=== PATIENT | female | born 1965 | race Caucasian/White ===

== ENCOUNTER 2017-06-19 21:19 | Emergency (ER) | payer MEDICAID ==
[~2017-06-19] VITALS: Ht 160 cm; Wt 85.0 kg
[~2017-06-19 21:19] MED LIST: IBUP-1542 PO; PENI500T PO; PRED20TA PO
[2017-06-19 21:34] VITALS: Ht 160 cm; Wt 85.0 kg
--- NOTE | 2017-06-19 22:39 | ERD ---
ER Documentation Chief Complaint Chief Complaint sp ground level fall, right hand swelling HPI This left handed 52 year old female fell today when she was running to catch her ride, pt fell forward with the right arm stretched out, right hand pain edema and JARRELL, right FA pain denies hitting her head, loss of consciousness, nausea, vomiting, change in behavior ROS All systems reviewed and are negative except as per history of present illness. Medications Home Meds Active Scripts Hydrocodone/Acetaminophen ([place] 5-325 Tablet) 1 Each Tablet, 1 TAB PO Q6H Y for PAIN, #7 TAB Prov:ADRIEL,ELE 06/19/17 Ibuprofen* (Motrin*) 400 Mg Tab, 400 MG PO Q6, #30 TAB Prov:ADRIEL,ELE 06/19/17 Prednisone* (Prednisone*) 20 Mg Tab, 40 MG PO DAILY for 4 Days, TAB Prov:LIZ HASSAN 11/26/15 Penicillin V Potassium* (Penicillin V K*) 500 Mg Tab, 500 MG PO QID for 10 Days , TAB Prov:LIZ HASSAN 11/26/15 Ibuprofen* (Motrin*) 600 Mg Tab, 600 MG PO Q6H Y for PAIN AND OR ELEVATED TEMP, #30 TAB Prov:LIZ HASSAN 11/26/15 Allergies Allergies: Coded Allergies: No Known Allergy (Unverified , 06/19/17) PMhx/Soc Medical and Surgical Hx: pt denies Medical Hx History of Surgery: Yes (LEFT KNEE SX) Anesthesia Reaction: No Hx Neurological Disorder: No Hx Respiratory Disorders: No Hx Cardiac Disorders: No Hx Psychiatric Problems: No Hx Miscellaneous Medical Probl: No Hx Alcohol Use: No Hx Substance Use: No Hx Tobacco Use: No Smoking Status: Never smoker Physical Exam Vitals Vital Signs Date Time Temp Pulse Resp B/P Pulse Ox O2 Delivery O2 Flow Rate FiO2 06/19/17 21:34 98.3 83 20 133/73 98 Physical Exam Const: Nourished well-appearing well-hydrated 52-year-old female obvious discomfort no acute distress Head: Atraumatic no laceration, abrasion, or hematoma Eyes: Normal Conjunctiva PERRLA, EOMI ENT: Normal External Ears, Nose and Mouth. Neck: Full range of motion..~ Resp: Clear to auscultation bilaterally no wheezes or rhonchi Cardio: Regular rate and rhythm, no murmurs Abd: Back: Upper Extremity -right hand and forearm: Skin: No laceration, gross edema, ecchymosis, right hand, forearm presents with inferior tenderness, no bruising noted no gross deformity. No laceration or abrasion, no gross deformity Compartments: Soft Motor: Full active range of motion shoulder/elbow abnormal range of motion of wrist and hand with movement Sensation: Intact shoulder/pinky/middle finger/thumb web space Bones: Nontender humerus/elbow/forearm/wrist full tenderness thumb, pointer finger, and middle finger Snuffbox: Nontender Joints: No effusion Pulses/Perfusion: 2+ radial, Capillary refill < 2 seconds Neur: Awake and alert Psych: Normal Mood and Affect Results 24 hrs Current Medications Medications (Trade) Dose Ordered Sig/Apolinar Route PRN Reason Start Time Stop Time Status Last Admin Dose Admin Acetaminophen/ Hydrocodone Bitart ([place] (5/325)) 1 tab ONCE ONCE PO 06/19/17 23:00 06/19/17 23:01 DC 06/19/17 22:52 Procedures/MDM PROCEDURE: XR Forearm. CLINICAL INDICATION: Fall with pain in right forearm. TECHNIQUE: AP and lateral views of the right forearm were obtained. COMPARISON: No prior studies are available for comparison. FINDINGS: There is normal mineralization and alignment. No fracture or osseous lesion is identified. The soft tissues are unremarkable. IMPRESSION: Unremarkable right forearm. Electronically viewed and signed by Physician Aleah on 06/19/2017 23:28 PROCEDURE: XR Hand. CLINICAL INDICATION: Fall. Reference marker directed towards the proximal phalanx of the right index finger. TECHNIQUE: AP oblique and lateral views of the right hand were obtained. COMPARISON: No prior studies are available for comparison. FINDINGS: There is normal mineralization. No acute fracture or dislocation is seen. There are no significant degenerative changes. There is no significant soft tissue swelling. IMPRESSION: Normal x-ray of the right hand x-ray . Electronically viewed and signed by Physician Aleah on 06/19/2017 23:27 This 52-year-old female presents to emergency department for evaluation after mechanical trip and fall today in the street while running to a car. Patient fell with her right hand outstretched, two-room course includes history and physical exam, patient has pain with movement of her finger and middle finger, gross edema noted. Abnormal range of motion., Patient also reports inferior forearm tenderness. Patient has full range of motion of elbow with flexion and extension. Treated with [place] 5/325, x-ray of right is read by radiologist there is normal mineralization, no fracture or dislocation is seen. There is no significant degenerative changes. There is no significant soft tissue swelling. Normal x-ray of right hand. x-ray of right forearm radiology findings are unremarkable, there is normal mineralization and alignment. No fracture or osseous lesion is identified. The soft tissues are unremarkable. Plan to discharge patient home with a wrist immobilizer, pain medication, ibuprofen, [place]/325 count of 7 for severe pain. Follow-up with primary care physician for reevaluation in 48 hours if necessary, return to emergency department for worsening of symptoms, swelling, pain, loss of function. Patient is stable with no new complaints during ER course, clinically there is no current evidence to suggest scaphoid fracture, flexor muscle injury, tendon injury, neurovascular compromise or any other emergent condition appearing to require further evaluation or hospitalization. I feel the patient is stable for discharge at this time. I have discussed results, examination findings, the treatment plan with the patient and family present prior to discharge. Indications for emergent reevaluation, side effects of medication were also discussed. All questions were answered. Patient verbalizes understanding and agrees with plan of care. Splint Assessment: Neurovascularly intact post splint placement with good fit. Departure Diagnosis: Primary Impression: Hand contusion Encounter type: initial encounter Laterality: right Qualified Code: S60.221A - Contusion of right hand, initial encounter Additional Impression: Arm contusion Encounter type: initial encounter Laterality: right Qualified Code: S40.021A - Contusion of right upper extremity, initial encounter Condition: Good Patient Instructions: Contusion, Hand, Contusion, Soft Tissue Additional Instructions: Thank you for for coming to [facility] for your care today. Please ask your nurse or provider if you have questions about your care today and do not leave until all your questions have been answered. Please use any medications given as directed and follow-up with your doctor (or the doctor you were referred to) in the next 2-3 days. If you do not have a primary care doctor you may follow up at the [facility] (listed below). You may also use motrin and tylenol as needed for fever and/or pain unless instructed otherwise by your provider or nurse. Indications for more urgent follow-up have been discussed, but you may return to the Emergency Department at ANY time for any worrisome or worsening symptoms. If you have abdominal pain, please know that no test or exam you received is perfect and you should follow up within 8 hours for continued pain. If you had any imaging studies today, such as an X-Ray or CT Scan, these studies will be reviewed later by a radiologist. You will be called if there are important findings that were not identified today, so make sure the contact information you provided at registration is correct. If you received any narcotic pain control medicine today, such as Vicodin, Morphine or Dilaudid, your coordination and judgment may be affected for a number of hours. Please do not drive or operate heavy machinery, and you may want someone to assist you at home. If you were given a prescription for narcotic medication, be aware that it is very addictive- use sparingly and only if necessary. ELE MOREL Jun 19, 2017 22:39
[2017-06-19] MEDS ORDERED: HYDROCODONE/APAP (5/325) TAB PO ONE (23:00)
--- NOTE | 2017-06-19 23:28 | RADRPT ---
PROCEDURE: XR Hand. CLINICAL INDICATION: Fall. Reference marker directed towards the proximal phalanx of the right inde x finger. TECHNIQUE: AP oblique and lateral views of the right hand were obtained. COMPARISON: No prior studies are available for comparison. FINDINGS: There is normal mineralization. No acute fracture or dislocation is seen. There are no significant degenerative changes. There is no significant soft tissue swelling. IMPRESSION: Normal x-ray of the right hand x-ray . RPTAT: [facility] Physician Aleah Date Time Electronically viewed and signed by Physician Aleah on 06/19/2017 23:27 RS/
--- NOTE | 2017-06-19 23:29 | RADRPT ---
PROCEDURE: XR Forearm. CLINICAL INDICATION: Fall with pain in right forearm. TECHNIQUE: AP and lateral views of the right forearm were obtained. COMPARISON: No prior studies are available for comparison. FINDINGS: There is normal mineralization and alignment. No fracture or osseous lesion is identified. The soft tissues are unremarkable. IMPRESSION: Unremarkable right forearm. RPTAT: [facility] Physician Aleah Date Time Electronically viewed and signed by Physician Aleah on 06/19/2017 23:28 RS/
[2017-06-19] MEDS ORDERED: HYDR-906 PO (23:57)
[2017-06-19] MEDS ORDERED: IBUP400T22 PO (23:57)
[2017-06-20 00:08] VITALS: BP 131/80; PULSE 72; RESP 15; TEMP 98.1
== END 2017-06-20 00:34 | disposition home or self-care (01) ==
LOC: FTE 21:19
DX: S60.221A Contusion of right hand, initial encounter (principal); S40.021A Contusion of right upper arm, initial encounter; W18.39XA Other fall on same level, initial encounter; Y92.9 Unspecified place or not applicable
CPT/HCPCS: 29125; 73090; 73130; Z7502; Z7610

== ENCOUNTER 2017-10-11 18:41 | Emergency (ER) | END 2017-10-11 19:51 | disposition home or self-care (01) ==

== ENCOUNTER 2018-11-06 16:49 | Emergency (ER) | payer MEDICAID ==
[~2018-11-06] VITALS: Ht 160 cm; Wt 79.0 kg
[~2018-11-06 16:49] MED LIST changes: +ACET500C5 PO; +AMOX500C2 PO; +BENZ-6 PO; +HYDR-4011 PO; +IBUP-1561 PO
[2018-11-06 17:05] VITALS: Ht 160 cm; Wt 79.0 kg
[2018-11-06] MEDS ORDERED: SOD CHLORIDE 0.9% 1,000 ML IV STA (17:18)
[2018-11-06] MEDS ORDERED: KETOROLAC 30 MG INJ IV STA (17:18)
[2018-11-06] MEDS ORDERED: AMPICILLIN/SULB 3 GM/NS (PMX) 100 ML IVPB ONE (17:30)
[2018-11-06] MEDS ORDERED: DEXAMETHASONE 10 MG/ML 1 ML INJ IV ONE (17:30)
[2018-11-06] MEDS ORDERED: SOD CHLORIDE 0.9% 100 ML ONE (17:57)
[2018-11-06] MEDS ORDERED: IOHEXOL 300MG/ML 150 ML BTL ONE (17:57)
--- NOTE | 2018-11-06 18:13 | ERD ---
ER Documentation Chief Complaint Chief Complaint sore throat lost voice x 3 days HPI 53-year-old Ecuadorean speaking female presents to the emergency room complaining of fever and sore throat. For the past 2-3 days she is having generalized malaise, sore throat. Over the past 24-48 hours the patient has a hoarse voice and feels like she cannot speak and is having difficulty and painful swallowing. She is noted to have a fever. Patient denies any chest pressure or shortness of breath but does note that the pain sometimes radiates into the epigastrium. During the patient's encounter translation services were utilized Language: Ecuadorean Source: Video ROS All systems reviewed and are negative except as per history of present illness. Medications Home Meds Active Scripts Amoxicillin/Potassium Clav (Amox-Clav 875-125 mg Tablet) 875-125 mg Tab, 1 TAB PO BID for 7 Days, #14 TAB Prov:VINNY HARRIS MD 11/06/18 Ibuprofen* (Motrin*) 800 Mg Tab, 800 MG PO Q6H PRN for PAIN AND OR ELEVATED TEMP, #30 TAB Prov:VINNY HARRIS MD 11/06/18 Discontinued Scripts Benzonatate* (Tessalon Perle*) 100 Mg Capsule, 100 MG PO Q8H PRN for COUGH, #20 CAP Prov:GRIFFIN CELIS NP 10/11/17 Amoxicillin* (Amoxicillin*) 500 Mg Cap, 500 MG PO TID for 10 Days, CAP Prov:GRIFFIN CELIS NP 10/11/17 Acetaminophen* (Tylophen*) 500 Mg Capsule, 1 CAP PO Q6H PRN for PAIN AND OR ELEVATED TEMP, #20 CAP Prov:GRIFFIN CELIS NP 10/11/17 Ibuprofen* (Motrin*) 600 Mg Tab, 600 MG PO Q6H PRN for PAIN AND OR ELEVATED TEMP, #30 TAB Prov:GRIFFIN CELIS NP 10/11/17 Prednisone* (Prednisone*) 20 Mg Tab, 60 MG PO DAILY for 5 Days, TAB Prov:GRIFFIN CELIS NP 10/11/17 Hydrocodone/Acetaminophen ([place] 5-325 Tablet) 1 Each Tablet, 1 TAB PO Q6H PRN for PAIN, #7 TAB Prov:ADRIEL,ELE 06/19/17 Ibuprofen* (Motrin*) 400 Mg Tab, 400 MG PO Q6, #30 TAB Prov:ADRIEL,ELE 06/19/17 Prednisone* (Prednisone*) 20 Mg Tab, 40 MG PO DAILY for 4 Days, TAB Prov:LIZ HASSAN S. 11/26/15 Penicillin V Potassium* (Penicillin V K*) 500 Mg Tab, 500 MG PO QID for 10 Days, TAB Prov:LIZ HASSAN S. 11/26/15 Ibuprofen* (Motrin*) 600 Mg Tab, 600 MG PO Q6H PRN for PAIN AND OR ELEVATED TEMP, #30 TAB Prov:LIZ HASSAN S. 11/26/15 Allergies Allergies: Coded Allergies: No Known Allergy (Unverified , 11/06/18) PMhx/Soc History of Surgery: Yes (LEFT KNEE SX) Anesthesia Reaction: No Hx Neurological Disorder: No Hx Respiratory Disorders: No Hx Cardiac Disorders: No Hx Psychiatric Problems: No Hx Miscellaneous Medical Probl: No Hx Alcohol Use: No Hx Substance Use: No Hx Tobacco Use: No Smoking Status: Never smoker FmHx Family History: No diabetes Physical Exam Vitals Vital Signs Date Temp Pulse Resp B/P (MAP) Pulse Ox O2 O2 Flow FiO2 Time Delivery Rate 11/06/18 99.6 97 20 128/75 97 Room Air 18:48 (92) 11/06/18 101.6 108 20 125/73 97 17:05 (90) Physical Exam General: Patient is refusing to phonate Head: Normocephalic, atraumatic. Eyes: Pupils equally reactive, EOM intact ENT: Moist mucous membranes, posterior pharynx has 2-3+ tonsils bilaterally with very scant exudates, uvula midline, no drooling, no stridor, soft submental s pace Neck: Supple, mild anterior cervical chain bilateral lymphadenopathy Respiratory: Lungs clear bilaterally, no distress Cardiovascular: RRR, no murmurs, rubs, or gallops Abdominal: Soft, non-tender, non-distended, no peritoneal signs : Deferred MSK: No edema, no unilateral swelling, 5/5 strength Neurologic: Alert and oriented, moving all extremities, no focal weakness, no cerebellar signs Skin: No rash Psych: Normal mood Result Diagram: 11/06/18 1723 11/06/18 1723 Results 24 hrs Laboratory Tests Test 11/06/18 17:23 11/06/18 18:59 White Blood Count 7.1 10^3/ul Red Blood Count 4.33 10^6/ul Hemoglobin 13.3 g/dl Hematocrit 40.4 % Mean Corpuscular Volume 93.3 fl Mean Corpuscular Hemoglobin 30.7 pg Mean Corpuscular Hemoglobin Concent 32.9 g/dl Red Cell Distribution Width 12.5 % Platelet Count 235 10^3/UL Mean Platelet Volume 9.4 fl Immature Granulocytes % 0.300 % Neutrophils % 68.8 % Lymphocytes % 17.3 % Monocytes % 12.0 % Eosinophils % 1.0 % Basophils % 0.6 % Nucleated Red Blood Cells % 0.0 /100WBC Immature Granulocytes # 0.020 10^3/ul Neutrophils # 4.9 10^3/ul Lymphocytes # 1.2 10^3/ul Monocytes # 0.9 10^3/ul Eosinophils # 0.1 10^3/ul Basophils # 0.0 10^3/ul Nucleated Red Blood Cells # 0.0 10^3/ul Sodium Level 141 mmol/L Potassium Level 3.7 mmol/L Chloride Level 108 mmol/L Carbon Dioxide Level 23 mmol/L Anion Gap 10 Blood Urea Nitrogen 9 mg/dl Creatinine 0.71 mg/dl Est Glomerular Filtrat Rate mL/min > 60 mL/min Glucose Level 133 mg/dl Calcium Level 8.8 mg/dl POC Beta HCG, Qualitative NEGATIVE Current Medications Medications Dose Sig/Apolinar Start Time Status Last (Trade) Ordered Route PRN Stop Time Admin Dose Reason Admin Sodium 1,000 ml @ Q1H STAT 11/06/18 DC 11/06/18 Chloride 1,000 mls/hr IV 17:18 17:31 11/06/18 18:17 Ketorolac 30 mg ONCE STAT 11/06/18 DC 11/06/18 Tromethamine IV 17:18 17:31 (Toradol) 11/06/18 17:20 10 mg ONCE ONCE 11/06/18 DC 11/06/18 Dexamethasone IV 17:30 17:30 (Decadron) 11/06/18 17:31 Ampicillin 100 ml @ ONCE ONCE 11/06/18 DC 11/06/18 Sodium/ 100 mls/hr IVPB 17:30 17:54 Sulbactam 11/06/18 18:29 Sodium IV Flush 10 ml STK-MED 11/06/18 DC 11/06/18 (NS 10 ml) ONCE .ROUTE 17:57 17:57 11/06/18 17:58 Sodium 100 ml @ ud STK-MED 11/06/18 DC 11/06/18 Chloride ONCE .ROUTE 17:57 17:57 11/06/18 17:58 Iohexol 150 ml STK-MED 11/06/18 DC 11/06/18 (Omnipaque ONCE .ROUTE 17:57 17:57 300mg/ ml) 11/06/18 17:58 Famotidine 20 mg ONCE STAT 11/06/18 DC 11/06/18 (Pepcid Iv) IV 18:29 18:37 11/06/18 18:30 40 ml ONCE STAT 11/06/18 DC 11/06/18 Miscellaneous PO 18:29 18:37 Medication 11/06/18 18:30 (Gi Cocktail (2)) Belladonna/ 2 tab ONCE STAT 11/06/18 DC 11/06/18 Phenobarbital PO 18:29 18:37 () 11/06/18 18:30 Procedures/MDM EKG, MONITORS, & DIAGNOSTIC IMAGING: CT neck with IV contrast IMPRESSION: 1. Moderate enlargement of the bilateral palatine tonsils, suggestive of tonsillitis. No evidence of peritonsillar abscess. 2. Moderate enlargement of the bilateral parotid glands without focal a bnormality. 3. No evidence of abnormal fluid collection or cervical lymphadenopathy. RPTAT: [facility] LAB INTERPRETATION: I reviewed the laboratory testing and it shows no significant leukocytosis MEDICAL DECISION MAKING: The patient presents with signs and symptoms consistent with acute pharyngitis, possibly bacterial. I believe the patient's refusal to phonate is somewhat behavioral however I cannot rule out deeper space infection therefore I believe CT imaging of the neck and soft tissues will be most appropriate. The patient will benefit from IV fluids Decadron and antibiotics. The patient is currently protecting her airway without signs of anaphylaxis or airway failure. No indication for intubation ER COURSE: * Patient given IV fluids, Toradol, Decadron, Unasyn * Patient was given a GI cocktail because she complained of epigastric discomfort. Symptoms improving * The patient is phonating more clearly. The patient is somewhat hesitant. There is a strong behavioral and anxiety component. * CT imaging shows no deeper space infection. The patient has tolerated oral intake and can be safely discharged home. CONSULTATION: [None] DISPOSITION PLAN: The patient does not have an identifiable emergent medical condition that warrants inpatient hospitalization at this time. The patient is deemed safe for discharge with outpatient follow-up. We discussed follow up with the patient's primary care doctor within 24 to 48 hours as needed. We also discussed return to the emergency room for worsening symptoms or worsening condition. Outpatient referral: ENT as needed Discharge Medications: Motrin and Augmentin Departure Diagnosis: Primary Impression: Acute bacterial tonsillitis Condition: Stable VINNY HARRIS MD Nov 06, 2018 18:13
[2018-11-06] MEDS ORDERED: BELLADONNA/PHENOBARBITAL TAB PO STA (18:29)
[2018-11-06] MEDS ORDERED: FAMOTIDINE 20 MG INJ IV STA (18:29)
[2018-11-06] MEDS ORDERED: LIDOCAINE/MYLANTA 40 ML BTL PO STA (18:29)
[2018-11-06] MEDS ORDERED: IBUP800T48 PO (19:12)
[2018-11-06] MEDS ORDERED: AMOX1TAB10 PO (19:12)
[2018-11-06 20:00] VITALS: BP 127/72; PULSE 90; RESP 20
== END 2018-11-06 20:32 | disposition home or self-care (01) ==
LOC: E/R 16:49
DX: J03.90 Acute tonsillitis, unspecified (principal)
CPT/HCPCS: 36415; 70491; 80048; 81025; 85025; 96374; 96375; J0295; J1100; J1885; J7030; Q9967; Z7502; Z7610